=== PATIENT | male | born 1980 | race Hispanic/Latino ===

== ENCOUNTER 2022-09-10 17:54 | Emergency (ER) | payer SELFPAY ==
[2022-09-10 18:55] LABS: Absolute Lymphocytes (CBC) 1.7 K/uL (0.7-4.9); Hematocrit 45.1 % (39.6-49.0); Lymphocytes % 18.7 % (15.3-44.8); MCV 93.8 fL (80-100); RBC Red Blood Cell Count 4.81 M/uL (4.33-5.43)
--- NOTE | 2022-09-10 18:55 | RAD REPORT ---
EXAM DESCRIPTION: RAD - Shoulder Left 2 View - 09/10/2022 6:47 pm CLINICAL HISTORY: PAIN COMPARISON: No comparisons FINDINGS/IMPRESSION: No acute fracture. No malalignment. No significant focal degenerative changes.
[2022-09-10 18:56] LABS: Potassium 3.5 mmol/L (3.5-5.1)
--- NOTE | 2022-09-10 18:56 | RAD REPORT ---
EXAM DESCRIPTION: RAD - Femur Right - 09/10/2022 6:47 pm CLINICAL HISTORY: PAIN COMPARISON: No comparisons FINDINGS/IMPRESSION: No acute fracture. No malalignment. No significant focal degenerative changes.
--- NOTE | 2022-09-10 19:40 | RAD REPORT ---
EXAM DESCRIPTION: CT - Head C Spine Cap Maru Blood - 09/10/2022 7:22 pm CLINICAL HISTORY: Trauma, head and neck injury. Chest, abdomen and pelvis pain. Fall, Head injury COMPARISON: No comparisons TECHNIQUE: CT head without contrast. CT cervical spine without contrast with coronal and sagittal reformatted images. CT chest, abdomen and pelvis with coronal and sagittal reformatted images of the spine. All CT scans are performed using dose optimization technique as appropriate and may include automated exposure control or mA/KV adjustment according to patient size. FINDINGS: CT HEAD WITHOUT CONTRAST: No intracranial hemorrhage, hydrocephalus or extra-axial fluid collection. No acute large vascular te rritory infarct. Mild left maxillary sinus thickening. The calvarium is intact. Left occipital scalp hematoma. CT CERVICAL SPINE WITHOUT CONTRAST: No fracture or subluxation. Mild cervical spondylosis. The prevertebral soft tissues are normal in thickness. CT CHEST, ABDOMEN, PELVIS: Thorax: Chest Wall: No abnormal mass Lungs: 2 mm right upper lobe pulmonary nodules almost certainly benign. Pleura: No effusions or pneumothorax. Mini/Mediastinum: No lymphadenopathy. Aorta/Pulmonary Arteries: Unremarkable Heart: Normal size. Abdomen/Pelvis: Liver: Hepatic steatosis. Biliary: No biliary ductal dilatation. Stomach: No significant focal abnormality. Duodenum: No significant focal abnormality. Pancreas: No significant abnormality. Spleen: No significant abnormality. Adrenal: No suspicious lesions. Kidney/ureter: No hydronephrosis. No renal calculi. Retroperitoneum: No retroperitoneal adenopathy. Vascular: No aneurysm. Bowel: No significant focal abnormality. Peritoneum: No ascites or free air. Bladder: Grossly unremarkable. Reproductive: No adnexal masses. Bones: No acute fracture. Other: n/a IMPRESSION: 1. No acute intracranial abnormality. Left occipital scalp hematoma. No underlying skull fracture. 2. No acute fracture or traumatic malalignment of the cervical spine. 3. No significant trauma to the chest, abdomen, or pelvis.
[2022-09-10] MEDS ORDERED: TETANUS & DIPHTHERIA TOX,ADULT 0.5 ML VIAL ONE (20:11)
--- NOTE | 2022-09-10 20:51 | ER ---
Nurse's Notes [facility] Name: Evelio Green Age: 42 yrs Sex: Male : 1980 Arrival Date: 09/10/2022 Time: 17:58 Bed 5 Private MD: Diagnosis: Contusion of unspecified part of head;Abrasion of scalp;Unspecified fall, initial encounter;Contusion of left shoulder;Contusion of right upper leg Presentation: 09/10 18:07 Chief complaint: Patient states: Fell 10-12 ft from scaffolding today at 1330, striking kb3 the back of his head. Denies LOC. Reports he fell onto dirt but might have hit wood or bricks with his head. PT also reports abrasions to left posterior shoulder and right hip. Coronavirus screen: Vaccine status: Patient reports being unvaccinated. Client denies travel out of the [place] in the last 14 days. Ebola Screen: Patient negative for fever greater than or equal to 101.5 degrees Fahrenheit, and additional compatible Ebola Virus Disease symptoms Patient denies exposure to infectious person. Patient denies travel to an Ebola-affected area in the 21 days before illness onset. Complicating Factors: There are no complicating factors for this patient. Initial Sepsis Screen: Does the patient meet any 2 criteria? No. Patient's initial sepsis screen is negative. Does the patient have a suspected source of infection? No. Patient's initial sepsis screen is negative. Risk Assessment: Do you want to hurt yourself or someone else? Patient reports no desire to harm self or others. Onset of symptoms was September 10, 2022 at 13:00. 18:07 Method Of Arrival: Ambulatory kb3 18:07 Acuity: ELLEN 3 kb3 Triage Assessment: 18:10 General: Appears in no apparent distress. Behavior is calm, cooperative. Pain: kb3 Complains of pain in right parietal area Pain does not radiate. Pain currently is 6 out of 10 on a pain scale. Neuro: No deficits noted. Historical: - Allergies: 18:10 No Known Allergies; kb3 - PMHx: 18:10 None; kb3 - PSHx: 18:10 None; kb3 - Immunization history:: Adult Immunizations up to date, Client reports having NOT received the Covid vaccine. Last tetanus immunization: < 10 years ago. - Social history:: Smoking status: Patient denies any tobacco usage or history of. Screenin:10 Abuse screen: Denies threats or abuse. Denies injuries from another. Nutritional bp screening: No deficits noted. Tuberculosis screening: No symptoms or risk factors identified. Fall Risk None identified. Assessment: 18:10 General: SEE TRIAGE NOTE. bp Vital Signs: 18:07 BP 173 / 109; Pulse 79; Resp 20; Temp 98.9; Pulse Ox 100% ; Weight 74.84 kg; Height 5 kb3 ft. 5 in. (165.10 cm); Pain 5/10; 18:07 Body Mass Index 27.46 (74.84 kg, 165.10 cm) kb3 ED Course: 17:58 Patient arrived in ED. rg4 18:10 Triage completed. kb3 18:10 Arm band placed on. kb3 18:10 Patient has correct armband on for positive identification. Bed in low position. Call bp light in reach. Side rails up X2. 18:12 Adi Samuel NP is PHCP. pm1 18:12 Tristen Garnica MD is Attending Physician. pm1 18:25 Ovidio Botello, ESTELITA is Primary Nurse. bp 18:30 Inserted saline lock: 20 gauge in right forearm, using aseptic technique. Blood bp collected. 18:49 Shoulder Left (2 View) XRAY In Process Unspecified. EDMS 18:49 Femur Right XRAY In Process Unspecified. EDMS 19:24 CT Traumagram (Head C Spine CAP W Con) In Process Unspecified. EDMS 21:02 No provider procedures requiring assistance completed. IV discontinued, intact, as6 bleeding controlled, No redness/swelling at site. Pressure dressing applied. Administered Medications: 20:17 Drug: Tetanus-Diphtheria Toxoid Adult 0.5 ml {Transplant Nurse: [employer]. Exp: as6 03/20/2024. Lot #: [id number]. } Route: IM; Site: right deltoid; 20:19 Follow up: Response: (VIS) Vaccine information sheet provided today. Questions and/or as6 concerns addressed. VIS edition date: Jun 06, 2021. Medication: 18:10 VIS not applicable for this client. bp Outcome: 20:51 Discharge ordered by . pm1 21:02 Discharged to home ambulatory, with family. as6 21:02 Condition: stable 21:02 Discharge instructions given to patient, family, Instructed on discharge instructions, follow up and referral plans. medication usage, wound care, Demonstrated understanding of instructions, follow-up care, medications, wound care, Prescriptions given X 1. 21:02 Patient left the ED. as6 Signatures: Dispatcher [employer] EDMS Adi Samuel NP AIRLINE COUNTER AGENT pm1 Lorraine Green rg4 Ovidio Botello RN RN bp Marco Antonio Manning RN RN as6 aMrisa Sprague RN RN kb3
--- NOTE | 2022-09-10 20:51 | EDPHYS ---
Physician Documentation [facility] Name: Evelio Green Age: 42 yrs Sex: Male : 1980 Arrival Date: 09/10/2022 Time: 17:58 Bed 5 Private MD: ED Physician Tristen Garnica HPI: 09/10 18:20 This 42 yrs old Male presents to ER via Ambulatory with complaints of pm1 Laceration To Head. 18:20 The patient has a laceration related to: Fall from scaphold approximately 10 feet pm1 occurred outdoors, The injury was accidental. The laceration(s) is(are) located on the parietal area. Onset: The symptoms/episode began/occurred today, at 13:00. Associated signs and symptoms: Pertinent positives: right upper leg pain and left shoulder pain, Pertinent negatives: loss of consciousness. The patient has not experienced similar symptoms in the past. The patient has not recently seen a physician. Patient fell from scaffolding approximately 10 feet while he was at work at 1300. Patient reports falling onto a dirt. Patient presenting to the ER here with complaints of laceration to the back of his head. Negative for LOC, neck pain, back pain, abdominal pain, hip pain. Patient reports pain to right upper leg and left shoulder. Patient able to walk without any difficulty and full range of motion intact to left shoulder and arm. Historical: - Allergies: 18:10 No Known Allergies; kb3 - PMHx: 18:10 None; kb3 - PSHx: 18:10 None; kb3 - Immunization history:: Adult Immunizations up to date, Client reports having NOT received the Covid vaccine. Last tetanus immunization: < 10 years ago. - Social history:: Smoking status: Patient denies any tobacco usage or history of. ROS: 18:20 Constitutional: Negative for fever, chills, and weight loss, Cardiovascular: Negative pm1 for chest pain, palpitations, and edema, Respiratory: Negative for shortness of breath, cough, wheezing, and pleuritic chest pain. 18:20 Eyes: Negative for injury, pain, redness, and discharge, Neck: Negative for injury, pain, and swelling, Abdomen/GI: Negative for abdominal pain, nausea, vomiting, diarrhea, and constipation, Back: Negative for injury and pain. 18:20 Neuro: Negative for headache, weakness, numbness, tingling, and seizure. 18:20 MS/extremity: Positive for Pain to right upper leg and left shoulder, Negative for decreased range of motion, deformity. 18:20 Skin: Positive for Laceration to back of head. 18:20 All other systems are negative. Exam: 18:20 Constitutional: This is a well developed, well nourished patient who is awake, alert, pm1 and in no acute distress. 18:20 Abdomen/GI: Soft, non-tender, with normal bowel sounds. No distension or tympany. No guarding or rebound. No evidence of tenderness throughout. Back: No spinal tenderness. No costovertebral tenderness. Full range of motion. MS/ Extremity: Pulses equal, no cyanosis. Neurovascular intact. Full, normal range of motion intact without pain to all extermities 18:20 Head/face: Noted is no obvious of injury or deformity except abrasion(s), that are mild, of the parietal area, contusion, that is superficial, of the parietal area. 18:20 Eyes: Exam is negative for acute changes, Periorbital structures: no acute changes, Extraocular movements: no acute changes, Conjunctiva: no acute changes, no injection. 18:20 ENT: External ear(s): no acute changes, Ear canal(s): no acute changes, TM's: no acute changes, Mouth: no acute changes. 18:20 Neck: Exam negative for External neck: no acute changes, C-spine: vertebral tenderness, is not appreciated. 18:20 Cardiovascular: Exam negative for acute changes, Rate: normal, Rhythm: regular, Pulses: no pulse deficits are appreciated. 18:20 Respiratory: Exam negative for acute changes, respiratory distress, shortness of breath. 18:20 Neuro: Exam negative for acute changes, Orientation: is normal, Mentation: is normal, Motor: is normal, moves all fours. Vital Signs: 18:07 BP 173 / 109; Pulse 79; Resp 20; Temp 98.9; Pulse Ox 100% ; Weight 74.84 kg; Height 5 kb3 ft. 5 in. (165.10 cm); Pain 5/10; 18:07 Body Mass Index 27.46 (74.84 kg, 165.10 cm) kb3 MDM: 18:13 Patient medically screened. pm1 20:02 Data reviewed: vital signs. Data interpreted: Pulse oximetry: on room air is 100 %. pm1 Interpretation: normal. 20:02 Counseling: I had a detailed discussion with the patient and/or guardian regarding: pm1 radiology results. 20:46 Counseling: I had a detailed discussion with the patient and/or guardian regarding: the pm1 historical points, exam findings, and any diagnostic results supporting the discharge/admit diagnosis, lab results, radiology results, the need for outpatient follow up, 20:46 Special discussion: I discussed with the patient the need to follow-up with the pm1 PCP/specialist for the noted incidental finding on X-ray/CT scanning. 09/10 18:20 Order name: Basic Metabolic Panel; Complete Time: 19:28 pm1 09/10 18:20 Order name: CBC with Diff; Complete Time: 19:28 pm1 09/10 18:20 Order name: CT Traumagram (Head C Spine CAP W Con); Complete Time: 19:43 pm1 09/10 18:20 Order name: Type And Screen; Complete Time: 20:12 pm1 09/10 18:22 Order name: Shoulder Left (2 View) XRAY; Complete Time: 19:28 pm1 09/10 18:20 Order name: C-Collar; Complete Time: 18:53 pm1 09/10 18:20 Order name: Labs collected and sent; Complete Time: 18:53 pm1 09/10 18:20 Order name: IV Saline Lock; Complete Time: 18:53 pm1 09/10 18:24 Order name: Femur Right XRAY; Complete Time: 19:28 pm1 Administered Medications: 20:17 Drug: Tetanus-Diphtheria Toxoid Adult 0.5 ml {Spray Booth Operator: [employer]. Exp: as6 03/20/2024. Lot #: [id number]. } Route: IM; Site: right deltoid; 20:19 Follow up: Response: (VIS) Vaccine information sheet provided today. Questions and/or as6 concerns addressed. VIS edition date: Jun 06, 2021. Disposition Summary: 09/10/22 20:51 Discharge Ordered Location: Home pm1 Problem: new pm1 Symptoms: have improved pm1 Condition: Stable pm1 Diagnosis - Contusion of unspecified part of head pm1 - Abrasion of scalp pm1 - Unspecified fall, initial encounter pm1 - Contusion of left shoulder pm1 - Contusion of right upper leg pm1 Followup: pm1 - With: Emergency Department - When: As needed - Reason: Worsening of condition Followup: pm1 - With: Private Physician - When: 2 - 3 days - Reason: Recheck today's complaints, Continuance of care, Re-evaluation by your physician Discharge Instructions: - Discharge Summary Sheet pm1 - Abrasion pm1 - Contusion pm1 - Facial or Scalp Contusion pm1 - Fall Prevention in the Home, Adult pm1 Forms: - Medication Reconciliation Form pm1 - Thank You Letter pm1 - Antibiotic Education pm1 - Prescription Opioid Use pm1 Prescriptions: - Diclofenac Sodium 75 mg Oral tablet,delayed release (DR/EC) - take 1 tablet by ORAL route 2 times per day As needed; 30 tablet; Refills: 0, pm1 Product Selection Permitted Addendum: 09/14/2022 09:01 Co-signature as Attending Physician, Tristen Garnica MD. r n Signatures: Dispatcher [employer] EDMS Tristen Garnica MD MD rn Adi Samuel, STUDENT SUPPORT SERVICES DIRECTOR STUDENT SUPPORT SERVICES DIRECTOR pm1 Marco Antonio Manning RN RN as6 Marisa Sprague RN RN kb3 Corrections: (The following items were deleted from the chart) 09/10 18:46 18:20 Femur Left+RAD.RAD.BRZ ordered. EDMI EDMI
[2022-09-10 21:27] VITALS: BP 173/109; TEMP 98.9; O2SAT 100
== END 2022-09-10 21:02 | disposition home or self-care (01) ==
LOC: ER 17:54
DX: S01.91XA Laceration without foreign body of unspecified part of head, initial encounter (principal); S40.012A Contusion of left shoulder, initial encounter; S70.11XA Contusion of right thigh, initial encounter; W17.89XA Other fall from one level to another, initial encounter; Y93.89 Activity, other specified; Y92.69 Other specified industrial and construction area as the place of occurrence of the external cause; Y99.0 Civilian activity done for income or pay; Z23 Encounter for immunization
CPT/HCPCS: 36415; 70450; 71260; 72125; 74177; 80048; 85025; 86850; 86900; 86901; 90471; 90714; 99284; Q9967